=== PATIENT | male | born 1975 | race Two or more races ===

== ENCOUNTER 2018-03-10 02:00 | Emergency (ER) | payer MEDICAID ==
[~2018-03-10] VITALS: Ht 180.3 cm; Wt 65.9 kg
[~2018-03-10 02:00] MED LIST: CYCL-1 PO; NORCO10T PO; OMEP-84 PO; PANT40TA39 PO
[2018-03-10] MEDS ORDERED: ketorolac trometh inj. 60 MG/2 ML VIAL IM ONE (02:55)
[2018-03-10 03:16] VITALS: BP 124/78
== END 2018-03-10 03:19 | disposition home or self-care (01) ==
LOC: ER 02:01
DX: R10.84 Generalized abdominal pain (principal); F11.23 Opioid dependence with withdrawal; G89.29 Other chronic pain; Z79.899 Other long term (current) drug therapy
CPT/HCPCS: 96372; 99283; J1885